=== PATIENT | male | born 1975 | race Caucasian/White ===

== ENCOUNTER 2019-12-30 15:37 | Emergency (ER) | payer MEDICAID ==
[~2019-12-30] VITALS: Ht 182.9 cm; Wt 86.2 kg
--- NOTE | 2019-12-30 15:56 | NUR ---
bib self with c/o lump on right groin area x 1 week. no c/o pain or discomfort. all needs attended. awaiting for MD patterson
--- NOTE | 2019-12-30 16:43 | NUR ---
Ultrasound done at bedside
--- NOTE | 2019-12-30 16:50 | NUR ---
urine collected and sent to lab
[2019-12-30 17:03] LABS: APPEARANCE,URINE CLEAR (CLEAR); BILIRUBIN,URINE NEGATIVE (NEGATIVE); BLOOD, URINE NEGATIVE Ery/uL (NEGATIVE); COLOR,URINE YELLOW (YELLOW); KETONES,URINE TRACE (NEGATIVE); LEUKOCYTE ESTERASE ,URINE NEGATIVE (NEGATIVE); NITRITE, URINE NEGATIVE (NEGATIVE); PH,URINE 5.5 (5.0-8.0); PROTEIN,URINE NEGATIVE (NEGATIVE); UGLUCOSE NEGATIVE (NEGATIVE); UROBILINOGEN,URINE 0.2 EU/dL (0.2)
[2019-12-30 17:29] LABS: BACTERIA,URINE None seen /HPF (None Seen); MUCUS,URINE Few /LPF (None Seen); RBC,URINE 0-2 /HPF (0-2); SQUAMOUS EPITHELIAL CELL,UR 0-2 /HPF (None Seen); WBC,URINE 0-2 /HPF (0-3)
[2019-12-30 17:48] VITALS: BP 132/78
--- NOTE | 2019-12-30 17:49 | NUR ---
Patient discharged to home in stable condition. Written and verbal after care instructions given. Patient verbalizes understanding of instruction.
== END 2019-12-30 17:51 | disposition home or self-care (01) ==
LOC: ER 15:44
DX: R59.0 Localized enlarged lymph nodes (principal); Z88.0 Allergy status to penicillin
CPT/HCPCS: 76870-TC; 81000-TC; 87086-TC